=== PATIENT | female | born 1975 | race Two or more races ===

== ENCOUNTER 2021-07-30 15:44 | Emergency (ER) | payer MEDICAID ==
[~2021-07-30] VITALS: Ht 162.6 cm; Wt 72.6 kg
[2021-07-30 16:45] LABS: Alcohol, Urine < 3.0 mg/dL (0-10); Amphetamine Screen, Urine NEGATIVE (NEGATIVE); Barbiturate Scree,Urine NEGATIVE (NEGATIVE); Benzodiazephine Screen, Urine NEGATIVE (NEGATIVE); Cannabinoid Screen, Urine NEGATIVE (NEGATIVE); Cocaine Screen, Urine NEGATIVE (NEGATIVE); Opiate Scree,Urine NEGATIVE (NEGATIVE); Phencyclidine Screen, Urine NEGATIVE (NEGATIVE)
[2021-07-30 16:45] LABS: Acetaminophen < 2.0 ug/mL (10-30); Salicylate < 1.7 mg/dL (2.8-20.0)
[2021-07-30 19:50] VITALS: BP 122/79
== END 2021-07-30 19:53 | disposition home or self-care (01) ==
LOC: ER 15:44
DX: S60.812A Abrasion of left wrist, initial encounter (principal); F43.20 Adjustment disorder, unspecified; W26.0XXA Contact with knife, initial encounter; Y93.89 Activity, other specified; Y92.89 Other specified places as the place of occurrence of the external cause; Y99.8 Other external cause status
CPT/HCPCS: 36415; 80307; 80320; 80329

== ENCOUNTER 2023-01-05 11:44 | Emergency (ER) | payer MEDICAID ==
[~2023-01-05] VITALS: Ht 160 cm; Wt 75.0 kg
[2023-01-05 12:03] VITALS: BP 140/65
[2023-01-05 13:17] LABS: Urine Bacteria NONE SEEN /hpf (None Seen); Urine Blood Negative /uL (Negative); Urine Mucus FEW (None Seen); Urine Specific Gravity 1.013 (1.001-1.035); Urine WBC 1 /hpf (0 - 5)
== END 2023-01-05 19:16 | disposition left against medical advice (07) ==
LOC: ER 11:44
DX: M54.50 Low back pain, unspecified (principal); Z53.21 Procedure and treatment not carried out due to patient leaving prior to being seen by health care provider
CPT/HCPCS: 81001